=== PATIENT | female | born 1995 | race Caucasian/White ===

== ENCOUNTER 2021-11-15 16:05 | Outpatient (CLI) | payer OTHER, SELFPAY ==
[2021-11-15] VITALS (11 sets, daily range): BP systolic 138–156; BP diastolic 85–97; PULSE 77–108; TEMP 37.1; BMI 40.8
[2021-11-15 17:04] LABS: Hematocrit 27.2 % (37-47); Hemoglobin 8.9 g/dL (12.0-15.0); Mean Corp Hgb Conc 32.7 g/dL (32-36); Mean Corpuscular Hgb 30.2 pg (27.0-32.0); Mean Corpuscular Volume 92.2 fL (81-99); Mean Platelet Vol. 11.2 fl (6.2-12.0); Platelet Count 215 K/mm3 (150-450); RBC Distribution Width CV 14.8 % (11.6-14.6); RBC Distribution Width SD 49.1 fl (35.1-43.9); Red Blood Count 2.95 M/mm3 (4.2-5.4); White Blood Count 7.9 K/mm3 (4.4-11.0)
[2021-11-15 17:22] LABS: AST(SGOT) 15 U/L (15-37); Alanine Aminotransfer ALT/SGPT 10 U/L (13-56); Creatinine, Serum 1.08 mg/dL (0.55-1.02); EST Glomerular Filtration Rate 65 mL/min (>60); Est Glom Filt Rate - Afr Amer 78 mL/min (>60); Estimated Creatinine Clearance 64.73 ml/min; Uric Acid 7.2 mg/dL (2.6-6.0)
[2021-11-15 18:19] LABS: Protein, Urine (Random) 248.7 mg/dL (<11.9); Protein:Creat Ratio 777 mg/g CRE (0-200)
[2021-11-15 19:04] LABS: Group B Strep DNA By PCR Negative (Negative); Internal Control PASS; Probe Check PASS; Specimen Processing Control PASS
--- NOTE | 2021-11-16 11:14 | OB.TRI.NOTE ---
HPI - General General Date of Service: 11/15/21 Chief Complaint: r/o pre e HPI Narrative MARLI PEREZ, is a 26 F who presents at 36w5d from office for eval of elevated BP's. H/o obesity and elevated inhibin A. Was in the office for a routine OB visit and had 30+ protein in her urine, and elevated BP's. She was sent to L&D for eval. She denies CANSECO, vision changes, upper abd pain, nausea, malaise. She offers no complaints. PFSH PFSH Home Medications avsgijks-msx-Xl-FA 1 mg tablet tab PO 11/15/21 [History Last Taken Unknown] Allergy/AdvReac Type Severity Reaction Status Date / Time amoxicillin Allergy Other Verified 11/15/21 16:36 Environmental Allergies: Allergy Itching Verified 11/15/21 16:36 Uncoded [seasonal] cefadroxil [From [facility]] AdvReac Other Verified 11/15/21 16:36 Physical Exam Const alert and no apparent distress General Appearance: comfortable Extremity Extremity Narrative: Pitting edema bilaterally and no hyper reflexia per Dr. Parra evaluation in the office NST FHR Rate Baby A Baseline: 125 Variability:: Moderate Accelerations:: 15 x 15 Decelerations:: None NST Reactive:: Yes Assessment & Plan (1) 36 weeks gestation of : PLAN: - BP mild range on admission with highest being 156/92. Pt denies symptoms of pre e. Labs reviewed and p/c ratio is elevated, and Cr is 1.08. Creatinine about 1-2 weeks ago was 0.9, and baseline appears to be around 1. No evidence of pre eclampsia with severe features at this time. Discussed pre eclampsia with patient and associated risks. Discussed recommendation for delivery at 37 weeks with pre eclampsia without severe features. Scheduled for induction tomorrow night to start Cytotec as cervix is closed. Had growth US in the office and vertex on ultrasound. GBS collected. Patient desires an induction of labor tomorrow night and understands r/b/a of an induction tomorrow. (2) Elevated blood pressure affecting in third trimester, antepartum: (3) Pre-eclampsia:
== END 2021-11-16 18:59 | disposition home or self-care (01) ==
LOC: WPOUT 16:18 → WP 16:19
PROVIDERS: Obstetrics & Gynecology; Referring Provider Obstetrics & Gynecology; Visit Provider Obstetrics & Gynecology
DX: O14.93 Unspecified pre-eclampsia, third trimester (principal); R03.0 Elevated blood-pressure reading, without diagnosis of hypertension; Z3A.36 36 weeks gestation of pregnancy
CPT/HCPCS: 36415; 59050; 82565; 82570; 84156; 84450; 84460; 84550; 85027; 87081; 87653; 99218; G0378

== ENCOUNTER 2021-11-16 19:00 | Inpatient (IN) | payer OTHER, SELFPAY ==
[2021-11-16] MEDS: 0.9% Saline Lock 10 ML Syringe IV (20:20)
[2021-11-16 20:32] LABS: Absolute Lymphocyte Count 1.05 X10^3/uL (0.83-4.51); Absolute Neutrophil Count 6.1 X10^3/uL (2.0-7.7); Basophil# 0.02 X10^3/uL; Basophil% 0.3 % (0-1); Eosinophil# 0.05 X10^3/uL; Eosinophils% 0.6 % (0-5); Hematocrit 27.9 % (37-47); Hemoglobin 8.9 g/dL (12.0-15.0); Lymphocyte # 1.05 X10^3/ul (0.83-4.51); Lymphocyte % 13.2 % (19-41); Mean Corp Hgb Conc 31.9 g/dL (32-36); Mean Corpuscular Hgb 29.6 pg (27.0-32.0); Mean Corpuscular Volume 92.7 fL (81-99); Mean Platelet Vol. 11.6 fl (6.2-12.0); Monocyte# 0.66 X10^3/uL; Monocyte% 8.3 % (0-10); NRBC Flagged by Analyzer 0 % (0-5); Platelet Count 210 K/mm3 (150-450); RBC Distribution Width CV 14.9 % (11.6-14.6); RBC Distribution Width SD 49.1 fl (35.1-43.9); Red Blood Count 3.01 M/mm3 (4.2-5.4); White Blood Count 7.9 K/mm3 (4.4-11.0)
[2021-11-16 21:01] VITALS: BP 145/96; PULSE 78; PULSE 80; TEMP 36.8; O2SAT 99
[2021-11-16 21:10] VITALS: BMI 40.6
--- NOTE | 2021-11-16 21:22 | PCM.HP.OB ---
HPI - General General Date of Admission: 11/16/21 HPI Narrative MARLI PEREZ, is a 26 F who presents for induction of labor for preeclampsia, obesity, and elevated inhibin A. Maternal Data Information ERA Calculator Estimated Delivery Date Method Current WG Current Estimate 12/08/21 Manual 36w 6d PFSH PFSH Home Medications prfwomlw-ejk-Po-FA 1 mg tablet 1 tab PO DAILY pregnnacy 11/15/21 [History Last Taken 11/16/21 20:00] Allergy/AdvReac Type Severity Reaction Status Date / Time amoxicillin Allergy Other Verified 11/16/21 21:15 Environmental Allergies: Allergy Itching Verified 11/16/21 21:15 Uncoded [seasonal] cefadroxil [From ] AdvReac Other Verified 11/16/21 21:15 NST FHR Rate Baby A Baseline: 125 Variability:: Moderate Accelerations:: 15 x 15 Decelerations:: None NST Reactive:: Yes FHR Category:: Category I Uterine Activity:: None noted ROS Eyes Eyes: Denies blurry vision, change in vision or spots in vision ENT HEENT: Denies dizziness or headache(s) Cardiovascular Cardiovascular: Denies abdominal pain, chest pain or dyspnea Respiratory/Chest Respiratory/Chest: Denies cough, dyspnea, shortness of breath at rest or shortness of breath with exertion Gastrointestinal Gastrointestinal: Denies abdominal pain, diarrhea or vomiting Genitourinary Genitourinary: Denies change in urinary stream, difficulty urinating or dysuria Musculoskeletal Musculoskeletal: Reports none Integumentary Integumentary: Denies rash Neurologic Neurologic: Denies dizziness, headache(s), memory loss or weakness Psychiatric Psychiatric: Reports none Vital Signs Vital Signs Vital Signs: 11/16/21 21:01 11/16/21 21:01 11/16/21 21:01 Temperature Temperature Source Pulse Rate 78 80 Blood Pressure 145/96 H BP Systolic 145 BP Diastolic 96 Pulse Ox 11/16/21 21:01 11/16/21 21:01 11/16/21 21:01 Temperature 98.2 F Temperature Source Temporal Pulse Rate Blood Pressure BP Systolic BP Diastolic Pulse Ox 99 Weight Weight: 229 lb 9.6 oz Body Mass Index (BMI) 40.6 Physical Exam Const alert, oriented x3 and no apparent distress General Appearance: cooperative Orientation / Consciousness: awake Exam Limitations: no limitations HEENT normocephalic Head and Scalp: normal to inspection Eyes General Eye: normal appearance of both eyes Neck full ROM and no lymphadenopathy Lymph Lymphatic: no lymphadenopathy noted Chest inspection of chest normal Resp normal respiratory effort, normal air movement and clear to auscultation bilaterally Effort and Inspection: able to speak in complete sentences and symmetric chest movement Cardio regular rate and regular rhythm GI normal to inspection, nondistended, normoactive bowel sounds Back/Spine normal ROM Extremity full ROM and no calf tenderness Skin no rashes or lesions noted General Skin Exam: no breakdown Neuro oriented x3 and CN's II-XII intact bilaterally Psych mental status grossly normal and thought process normal Labs Labs Labs: Blood Type Pending Antibody Screen Pending Hct 27.9 % (37-47) L Hgb 8.9 g/dL (12.0-15.0) L Group B Strep DNA Negative (Negative) O+ Rubella- immune HB -neg HC - neg RPR- NR HIV- NR GBS- negative Assessment & Plan (1) Pre-eclampsia: (2) 36 weeks gestation of : (3) Obesity affecting , antepartum: (4) High serum inhibin A: PLAN: Plan Admit to labor and delivery Activate HTN protocol if warranted PIH labs Start IV and run fluids per policy GBS negative Cytotec 25 mcg PO every 4 hours x [address] Frances involved in admission and is collaborating physician
[2021-11-16 22:12] LABS: AST(SGOT) 13 U/L (15-37); Alanine Aminotransfer ALT/SGPT 8 U/L (13-56); Creatinine, Serum 1.05 mg/dL (0.55-1.02); EST Glomerular Filtration Rate 67 mL/min (>60); Est Glom Filt Rate - Afr Amer 81 mL/min (>60); Estimated Creatinine Clearance 66.57 ml/min; LDH 144 U/L (84-246); Uric Acid 7.1 mg/dL (2.6-6.0)
[2021-11-16 22:36] VITALS: BP 137/94; PULSE 88; TEMP 36.3
[2021-11-16] MEDS: miSOPROStol 25 MCG TABLET PO (22:40)
--- NOTE | 2021-11-16 22:43 | NURSING ---
patient does not have covid vaccine information
[2021-11-16 23:07] VITALS: BP 139/94; PULSE 77
[2021-11-16 23:48] VITALS: BP 137/76; PULSE 78; TEMP 36.4
[2021-11-16 23:55] LABS: Protein, Urine (Random) 383.6 mg/dL (<11.9); Protein:Creat Ratio 1066 mg/g CRE (0-200)
[2021-11-17] VITALS (55 sets, daily range): BP systolic 122–156; BP diastolic 65–93; PULSE 71–119; TEMP 36.5–37.2; O2SAT 88–100
[2021-11-17] MEDS: miSOPROStol 25 MCG TABLET PO ×2 (02:58→06:50)
--- NOTE | 2021-11-17 08:19 | PCM.PN.BLA ---
Progress Note Patient doing well. Denies any symptoms of preeclampsia. She offers no complaints this morning. Assessment & Plan Assessment/Plan (1) 37 weeks gestation of : PLAN: Cervix 1 thick and high, vertex. Will attempt intracervical Harris. We will start Pitocin once 4 hours out from Cytotec. Blood pressures remain mild range. Labs stable on admission. She has no symptoms of preeclampsia this morning. Discussed plan of care with patient and questions answered. (2) Pre-eclampsia: (3) Obesity affecting , antepartum: (4) High serum inhibin A:
--- NOTE | 2021-11-17 08:32 | PCM.PN.BLA ---
Progress Note At bedside for shafer placement and pt still doing well. Assessment & Plan Assessment/Plan (1) 37 weeks gestation of : PLAN: Cvx 1/t/h, vertex. Intracevical shafer placed in usual fashion and balloon filled with 40 cc. A small amount of red blood noted after exam and placement likely due to cervical irritation. Category 1 tracing. Pt feels well. (2) Pre-eclampsia: (3) Obesity affecting , antepartum: (4) High serum inhibin A:
[2021-11-17] MEDS: 0.9% Saline Lock 10 ML Syringe IV ×2 (08:33→21:51)
[2021-11-17] MEDS: 0.9% Normal Saline Single 100 ML IV.SOLN. INTRA-UTER (08:33)
[2021-11-17] MEDS: Lactated Ringers 1,000 ML 50 ML IV (08:33)
[2021-11-17] MEDS: Ondansetron 4 MG/2 ML Vial IV ×2 (08:56→21:50)
[2021-11-17] MEDS: Oxytocin 30 units/NS 500 ml 30 UNITS/500 ML IV.SOLN IV (10:53)
--- NOTE | 2021-11-17 17:09 | NURSING ---
Reports not catching urine well in hat for measuring
--- NOTE | 2021-11-17 17:47 | PCM.PN.BLA ---
Progress Note At bedside to check on pt. She is feeling ctx's but still comfortable. No bleeding. Assessment & Plan Assessment/Plan (1) 37 weeks gestation of : PLAN: Cvx 4/50/-3, posterior, ballotable. Unable to perform AROM at this time. Pit at 16 mu/min. Continue to titrate pitocin and will re assess later tonight for AROM. Category 1 tracing. BP normal-mild range. No pre e symptoms. (2) Pre-eclampsia: (3) Obesity affecting , antepartum:
[2021-11-17] MEDS: Mag Hydrox/Al Hydrox/Simeth 30 ML UDC PO (19:38)
[2021-11-17] MEDS: LACTATED RINGERS 500 ML 999 ML IV ×2 (21:26→23:27)
--- NOTE | 2021-11-17 21:26 | PCM.PN.BLA ---
Progress Note At bedside to check on pt. She is doing well. Uncomfortable with ctx's. No vb or lof. Assessment & Plan Assessment/Plan (1) 37 weeks gestation of : PLAN: Cvx /-2. Pit at 18 mu/min. head now well engaged in pelvis and no longer ballotable. AROM performed for moderate to large amount of clear fluid. IUPC placed. FHT 140/mod yazmin/+accels/+occasional variable decels. Pt desires epidural at this time. (2) Pre-eclampsia: (3) Obesity affecting , antepartum: (4) High serum inhibin A:
[2021-11-17] MEDS: fentaNYL-bupivacaine (epidural) 100 ML BAG EPIDURAL (22:15)
[2021-11-17] MEDS: Lactated Ringers 1,000 ML 200 ML IV (22:35)
[2021-11-18] VITALS (26 sets, daily range): BP systolic 131–158; BP diastolic 65–89; PULSE 81–107; RESP 16–18; TEMP 36.3–37; O2SAT 98–100
[2021-11-18] MEDS: Ondansetron 4 MG/2 ML Vial IV ×2 (01:35→06:01)
[2021-11-18] MEDS: 0.9% Saline Lock 10 ML Syringe IV ×3 (01:35→09:20)
[2021-11-18] MEDS: fentaNYL-bupivacaine (epidural) 100 ML BAG EPIDURAL (02:18)
[2021-11-18] MEDS: Lactated Ringers 1,000 ML 200 ML IV (06:15)
[2021-11-18] MEDS: Oxytocin 30 units/NS 500 ml 30 UNITS/500 ML IV.SOLN 334 UNITS IV (06:38)
--- NOTE | 2021-11-18 06:52 | PCM.PN.BLA ---
Progress Note Delayed entry. After 1.5 hours of pushing with good effort and good descent, bradycardia noted. I was immediately at bedside. FSE placed and cvx checked: 10/100/0 station. Pt placed in hands and knees. Pitocin turned off. FHT 160/mod yazmin/no accels/no decels. Pt pushed in hands and knees for a few ctx's without decels. Pitocin then restarted at half. Pt placed on back to assess pushing effort. Great pushing effort and pt moving baby to +2 station with each push. Pt set up for delivery. See operative report for details.
--- NOTE | 2021-11-18 06:57 | PCM.OPRPT ---
Problems Associated Problem List Diagnoses (1) 37 weeks gestation of : (2) Pre-eclampsia: (3) Obesity affecting , antepartum: (4) High serum inhibin A: Report of Operation Date of Procedure: 11/18/21 Pre-Operative Diagnosis: 37 week gestation, pre eclampsia without severe features, elevated inhibin A, obesity Post-Operative Diagnosis: As above Surgery/Procedure Performed:: Description of Surgical Findings:: VFI delivered in COCO position. Apgars 8, 9. Normal appearing placenta and 3 VC. 2nd degree perineal laceration. Surgeon: Mariel Dumont Type of Anesthesia: Epidural Special Medications: None Specimen's removed: Placenta Drains: Harris Estimated Blood Loss (mL): 100 Fluids Replaced: N/A Description of Procedure: The patient was complete and pushing. The head of the was delivered in right occiput anterior position, followed by the anterior shoulder spontaneously, followed by the posterior shoulder and body of the without any force or delay. A viable female was delivered atraumatically and placed on maternal abdomen. The cord was clamped and cut after 60 sec delay by the father of the baby. Cord blood and cord gases were obtained. The placenta was delivered with gentle traction and fundal massage. The placenta was noted to be normal-appearing and intact with a three-vessel cord. Uterus was explored x1. Fundus was firm and bleeding hemostatic with the Pitocin. Second-degree perineal laceration was repaired with 3-0 Vicryl in usual fashion. Instrument, sponge, sharp counts were correct. Grafts/Implants Used: None Complications None Admit VTE Documentation VTE Present on Admission: No
[2021-11-18] MEDS: Ibuprofen 600 MG Tablet PO ×2 (15:52→21:57)
[2021-11-18] MEDS: Acetaminophen 500 MG Tablet 1000 MG PO (17:59)
[2021-11-19] VITALS (11 sets, daily range): BP systolic 131–147; BP diastolic 82–85; PULSE 75–88; RESP 16–28; TEMP 36.1–37; O2SAT 98–100
--- NOTE | 2021-11-19 04:15 | DCINST_ITS ---
Discharge Instructions Diet Discharge Diet: No restrictions Activity Discharge Activity: May Shower May shower in (days): 0 May resume sexual activity in: 6 weeks Ice area for (Minutes): 15 Weight Bearing Status: Weight bearing as tolerated Lifting Restrictions: Nothing heavier than baby Additional Activity Instructions:: I am going to send in a prescription for a blood pressure cuff. Check your blood pressure once or twice daily and record it. If you ever have a blood pressure that is 160/110 or greater call. If you have a severe headache that will not go away with Tylenol, vision changes, upper abdominal pain, or you do not feel well please check your blood pressure then too and call Dressing / Incision Call your doctor if you observe: Fever of 101 or Higher, Coldness, Increased Pain, Numbness or Tingling, Change in Color, Inability to urinate, Inability to have a bowel movement, Using more than 1 pad per hour, Shortness of breath, Dizziness, Swelling in the ankles, Chest pain, Prolonged hiccupping, Increased palpitations (irregular heartbeat), Calf discomfort and Uncontrolled pain Cleanse incision/area with: Soap & Water Follow Up Care Please Follow Up With: Mariel Dumont, When: This upcoming week for a blood pressure check 6 week visit Test Results: Test results from this visit will be discussed in further detail at your follow- up appointment, if applicable. Discharge Plan Admission Admit Date/Time: 11/16/21 19:00 Primary Reason for Your Visit: delivery Attending Provider: Mariel Dumont Instructions Patient Instructions: After a Vaginal Discharge Orders/Prescriptions Prescriptions: New (DME) Blood Pressure Cuff Misc See Rx Instructions .Route Qty: 1 0RF Rx Instructions: As directed Continued aotyrest-vke-Nd-FA 1 mg Tablet 1 tab PO DAILY Disposition Disposition (needs filled in before D/C Order can be placed): Home, Self Care
--- NOTE | 2021-11-19 04:22 | PCM.PN.OB ---
Subjective Subjective Patient is doing well this morning. She denies any headaches or visual changes. She denies right upper quadrant pain. She is ambulating and voiding without difficulty. She is tolerating regular diet without nausea or vomiting. Lochia is normal. She is breast-feeding and using a nipple shield without complaints. She desires to go home today. Objective Data Objective Data Vital Signs: Vital Signs Temp Pulse Resp BP Pulse Ox O2 Del Method 97 F L 81 16 131/82 H 100 Room Air 11/19/21 00:56 11/19/21 04:18 11/19/21 00:56 11/19/21 04:18 11/19/21 00:56 11/19/21 00:56 Oxygen Delivery Method Room Air Weight: 229 lb 9.6 oz Body Mass Index (BMI) 40.6 Intake & Output: Intake and Output for Last 24 Hours 11/17/21 11/18/21 11/19/21 23:59 23:59 23:59 Intake Total 2294.74 / 2294.74 1718.33 / 1718.33 Output Total 200 / 200 1200 / 1200 Balance 2094.74 / 2094.74 518.33 / 518.33 Lab / Micro Data Result Diagrams: 11/16/21 20:20 11/16/21 20:20 Micro: Microbiology 11/16/21 20:20 Nasal Secretion SARS-CoV-2 Antigen (Rapid) - Final Physical Exam Const alert and no apparent distress General Appearance: comfortable HEENT normocephalic Resp normal respiratory effort GI soft to palpation and non-tender GI Narrative: FF Extremity no calf tenderness Extremity Narrative: 2+ pitting edema bilaterally No hyper reflexia No clonus Assessment & Plan (1) Pre-eclampsia: (2) Vaginal delivery: PLAN: Patient desires discharge today. She has no symptoms of anemia or pre eclampsia. BP mostly 130/80's. Meeting milestones for discharge. Discussed monitoring BP's this morning, and if they stay 130/80's OK for discharge. If trending up, may need anti hypertensive, labs and to stay overnight for monitoring. Sent BP cuff to her pharmacy. To monitor BP at home and discussed reasons to call or come in. Sent message to office staff for patient to come in early this week for a visit, and blood pressure check in office.
[2021-11-19] MEDS: Ibuprofen 600 MG Tablet PO (08:24)
[2021-11-19] MEDS: Benzocaine/Lanolin/Aloe Vera 1 SPRAY EACH TOPICAL (08:50)
== END 2021-11-19 16:10 | disposition home or self-care (01) | DRG 807 ==
PROVIDERS: Admitting Provider Advanced Practice Midwife; Visit Provider Obstetrics & Gynecology
DX: O14.94 Unspecified pre-eclampsia, complicating childbirth (principal); Z37.0 Single live birth; O70.1 Second degree perineal laceration during delivery; O99.214 Obesity complicating childbirth; O76 Abnormality in fetal heart rate and rhythm complicating labor and delivery; Z3A.37 37 weeks gestation of pregnancy
CPT/HCPCS: 59025; 59050; 82565; 82570; 83615; 84156; 84450; 84460; 84550; 85025; 86850; 86900; 86901; 87426; 99218; J7120; A4216; G0378; J2405

== ENCOUNTER 2024-05-18 07:13 | Inpatient (IN) | payer OTHER, SELFPAY ==
[2024-05-18] VITALS (55 sets, daily range): BP systolic 106–177; BP diastolic 56–88; PULSE 66–112; RESP 16–18; TEMP 36.4–36.9; O2SAT 98–100; BMI 41.0
[2024-05-18] MEDS: Lactated Ringers 1,000 ML 50 ML IV (07:42)
[2024-05-18 07:53] LABS: Absolute Lymphocyte Count 0.96 X10^3/uL (0.83-4.51); Absolute Neutrophil Count 6.7 X10^3/uL (2.0-7.7); Basophil# 0.03 X10^3/uL; Basophil% 0.4 % (0-1); Eosinophil# 0.08 X10^3/uL; Eosinophils% 0.9 % (0-5); Hematocrit 31.5 % (37-47); Hemoglobin 10.4 g/dL (12.0-15.0); Lymphocyte # 0.96 X10^3/ul (0.83-4.51); Lymphocyte % 11.3 % (19-41); Mean Corpuscular Hgb 30.9 pg (27.0-32.0); Mean Corpuscular Volume 93.5 fL (81-99); Mean Platelet Vol. 10.1 fl (6.2-12.0); Monocyte# 0.64 X10^3/uL; Monocyte% 7.5 % (0-10); NRBC Flagged by Analyzer 0 % (0-5); Neutrophil # 6.74 X10^3/uL (2.7-7.7); Neutrophil % 79.3 % (47-70); Platelet Count 210 K/mm3 (150-450); RBC Distribution Width CV 19.3 % (11.6-14.6); RBC Distribution Width SD 64.9 fl (35.1-43.9); Red Blood Count 3.37 M/mm3 (4.2-5.4); White Blood Count 8.5 K/mm3 (4.4-11.0)
--- NOTE | 2024-05-18 08:13 | HP.PCM.OB_ITS ---
HPI - General General Date of Admission: 05/18/24 HPI Narrative XAVIER PEREZ, is a 28 F who presents for induction of labor. at 39w3d. Denies any headache, visual changes, chest pain, shortness of breath, vaginal bleeding or leakage of fluid. Maternal Data Information ERA Calculator Estimated Delivery Date Method Current WG Current Estimate 05/22/24 Manual 39w 3d [facility] Medical History (Updated 05/18/24 @ 08:19 by Wendy Cartagena CNM) Pre-eclampsia Home Medications ?Medication ?Instructions ?Recorded ?Last Taken ?Type pguxhmul-vwo-Hm-FA 1 mg 1 tab PO DAILY pregnn acy 11/15/21 05/17/24 History tablet miscellaneous medical supply #1 ea 11/19/21 Unknown Rx (Blood Pressure Cuff) aspirin 81 mg tablet,delayed 81 mg PO DAILY 05/18/24 05/17/24 History release Allergy/AdvReac Type Severity Reaction Status Date / Time amoxicillin Allergy Other Verified 05/18/24 07:43 Environmental Allergies: Allergy Itching Verified 05/18/24 07:43 Uncoded (seasonal) cefadroxil (From [facility]) AdvReac Other Verified 05/18/24 07:43 Surgical History History of surgery Social History Smoking Status: Never smoker History Elective abortions Hx Para 1 Spontaneous abortions Hx # Term Pregnancies Ectopic pregnancies Hx # Pregnancies Multiple births # of living children NST FHR Rate Baby A Baseline: 135 Variability:: Moderate Accelerations:: 15 x 15 Decelerations:: None FHR Category:: Category I Uterine Activity:: None ROS Constitutional Constitutional: Reports systems reviewed and no addt'l complaints, except as documented; Denies headache(s) Eyes Eyes: Denies acute decrease in peripheral vision, blurry vision or change in vision ENT HEENT: Reports systems reviewed and no addt'l complaints, except as documented Cardiovascular Cardiovascular: Denies chest pain or dizziness Respiratory/Chest Respiratory/Chest: Denies cough, dyspnea, dyspnea on exertion, shortness of breath at rest or shortness of breath with exertion Gastrointestinal Gastrointestinal: Denies abdominal pain, diarrhea, nausea or vomiting Genitourinary Genitourinary: Denies abdominal discomfort Musculoskeletal Musculoskeletal: Denies limited range of motion Integumentary Integumentary: Reports systems reviewed and no addt'l complaints, except as documented Neurologic Neurologic: Reports systems reviewed and no addt'l complaints, except as documented Psychiatric Psychiatric: Reports systems reviewed and no addt'l complaints, except as documented Endocrine Endocrinology: Reports systems reviewed and no addt'l complaints, except as documented Hematologic/Lymphatic Hematologic/Lymphatic: Reports systems reviewed and no addt'l complaints, except as documented Allergic/Immunologic Allergic/Immunologic: Reports systems reviewed and no addt'l complaints, except as documented Vital Signs Vital Signs Vital Signs: 05/18/24 07:25 05/18/24 07:25 05/18/24 07:25 Temperature 98.2 F Temperature Source Temporal Pulse Rate Respiratory Rate 16 Blood Pressure BP Systolic BP Diastolic 05/18/24 07:27 05/18/24 07:27 05/18/24 07:58 Temperature Temperature Source Pulse Rate 99 Respiratory Rate Blood Pressure 134/77 H 125/82 H BP Systolic 134 125 BP Diastolic 77 82 05/18/24 07:58 05/18/24 07:58 05/18/24 07:58 Temperature Temperature Source Temporal Pulse Rate 91 Respiratory Rate 18 Blood Pressure BP Systolic BP Diastolic 05/18/24 07:58 Temperature 98.1 F Temperature Source Pulse Rate Respiratory Rate Blood Pressure BP Systolic BP Diastolic Weight Weight: 231 lb 7.766 oz Body Mass Index (BMI) 41.0 Physical Exam Const alert and oriented x3 General Appearance: cooperative Orientation / Consciousness: awake, oriented to person, oriented to place and oriented to time Exam Limitations: no limitations HEENT normocephalic Head and Scalp: normal to inspection, normocephalic and atraumatic Face and Sinus: normal facial exam Eyes General Eye: normal appearance of both eyes Neck full ROM Chest Chest: symmetrical chest wall rise Resp normal respiratory effort and normal air movement Auscultation: clear to auscultation bilaterally Cardio regular rate, regular rhythm, S1 normal heart sound, S2 normal heart sound, no murmurs, no rub, no gallops and no clicks GI normal to inspection, nondistended, normoactive bowel sounds and non-tender appearance of the vagina normal Bladder / Kidney Exam: no CVA tenderness Manual OB Exam: estimated gestational size appropriate, presentation cephalic, dilated 1, effaced 50, station -3 and other shafer inserted through cervical os, 30ml NS instilled. Tolerated well. Back/Spine normal ROM Extremity normal to inspection and full ROM Skin no rashes or lesions noted Neuro oriented x3, CN's II-XII intact bilaterally and moves all extremities Sensorium / Orientation: awake, alert and oriented to person Motor Exam: clonus absent Deep Tendon Reflexes: Rt Patellar (L4): 2+ and Lt Patellar (L4): 2+ Labs Labs Labs: Blood Type O POSITIVE Antibody Screen NEGATIVE Hct 31.5 % (37-47) L Hgb 10.4 g/dL (12.0-15.0) L Syphilis Total Ab Nonreactive (Nonreactive) Group B Strep DNA Negative (Negative) GBS negative RPR negative Rubella Immune HBsAG negative HepC negative HIV negative GC/CT negative 1hr GCT Assessment & Plan (1) Encounter for induction of labor: (2) 39 weeks gestation of : (3) History of pre-eclampsia: (4) Subclinical hyperthyroidism: (5) ASCUS with positive high risk HPV: (6) Obesity complicating : COMMENT: Pregravid BMI 37 (7) Anemia affecting : COMMENT: IV iron given during PLAN: Plan 1) Admit to labor and delivery 2) Routine labs 3) Continuous EFM 4) Pain management upon request 5) Shafer and pitocin for induction of labor. Reviewed risks, benefits and alternatives. 6) Dr. bryant physician and notified of patient status, above assessment, and plan.
[2024-05-18] MEDS: Oxytocin 15 Units/NS 250ml 15 UNITS/250 ML IV.SOLN 2 UNITS IV (08:14)
[2024-05-18] MEDS: 0.9% Normal Saline Single 100 ML IV.SOLN. INTRA-UTER (08:35)
[2024-05-18 08:50] LABS: Syphilis Antibodies Nonreactive (Nonreactive)
[2024-05-18] MEDS: fentaNYL-bupivacaine (epidural) 100 ML BAG EPIDURAL ×2 (11:25→15:38)
[2024-05-18] MEDS: Lactated Ringers 1,000 ML 999 ML IV (11:29)
[2024-05-18] MEDS: Lactated Ringers 1,000 ML 200 ML IV (15:38)
[2024-05-18] MEDS: Amnioinfusion- 0.9% NS 1,000 ML IV.SOLN. 1000 ML INTRA-UTER (17:37)
[2024-05-18] MEDS: Methylergonovine 0.2 MG/ML Ampul IM (18:43)
--- NOTE | 2024-05-18 18:54 | EX.PCM.OBVAG ---
Assessment & Plan (1) Vaginal delivery: (2) First degree perineal laceration: Maternal Data Information ERA Calculator Estimated Delivery Date Method Current WG Current Estimate 05/22/24 Manual 39w 3d Vaginal Delivery Vaginal Delivery Information Procedure Performed: Spontaneous Vaginal Delivery Date of Procedure: 05/18/24 Pre-Procedure Diagnosis: Elective Induction of Labor Post-Procedure Diagnosis: , first degree perineal laceration Type of anesthesia: Epidural Estimated Blood Loss: 600 ml Time of Delivery: 18:32 Findings Description of procedure: Progressed to complete with epidural for pain management. of viable female infant over first degree perineal laceration . APGARS 8,9 respectively. head delivered with body immediately forthcoming. Placed on maternal abdomen, strong cry. Mouth and nares suctioned for secretions. Pitocin started for active 3rd stage management. Cord doubly clamped and cut by FOB after pulsations ceased, delayed cord clamping. Placenta delivered intact via mcintyre, 3 vessel cord intact. Perineum inspected and revealed first degree perineal laceration. Repaired with 3.0 vicryl rapide and epidural Fundus firm and hemostasis achieved. EBL 600ml. Mom and baby stable, planning to breastfeed. Family bonding well. notified of delivery. Presentation: Vertex Amniotic Membrane Rupture Type: Artificial Amniotic Fluid Description: Clear Placental Delivery Description: Spontaneous Placenta Disposition: [facility] Specimen collected: No Cord Vessel Description: 3 Vessels Cord Entanglement: None Infant A Gender: Female (1 minute): 8 (5 minute): 9 Delayed Cord Clamping: Yes [employer] plate filler: No Post Vaginal Deli Medications given after delivery: IV Pitocin and IM Pitocin Episiotomy Description: None Laceration: Perineal Extension/lac and 1st degree Complication Complications: No
[2024-05-18] MEDS: Oxytocin 15 Units/NS 250ml 15 UNITS/250 ML IV.SOLN 83 UNITS IV (19:07)
[2024-05-18] MEDS: 0.9% Saline Lock 10 ML Syringe IV ×2 (19:48→22:17)
[2024-05-18] MEDS: Ondansetron 4 MG/2 ML Vial IV (19:48)
[2024-05-18] MEDS: Benzocaine/Lanolin/Aloe Vera 85 GM Spray 1 SPRAY TOPICAL (20:01)
[2024-05-18] MEDS: Ibuprofen 600 MG Tablet PO (20:33)
[2024-05-19] VITALS (9 sets, daily range): BP systolic 113–125; BP diastolic 57–79; PULSE 72–87; RESP 16; TEMP 36.1–36.9; O2SAT 97–98
[2024-05-19] MEDS: Ibuprofen 600 MG Tablet PO ×2 (05:01→11:34)
[2024-05-19 06:16] LABS: Absolute Lymphocyte Count 1.08 X10^3/uL (0.83-4.51); Absolute Neutrophil Count 10.9 X10^3/uL (2.0-7.7); Basophil# 0.02 X10^3/uL; Basophil% 0.2 % (0-1); Eosinophil# 0.07 X10^3/uL; Eosinophils% 0.5 % (0-5); Hematocrit 30.1 % (37-47); Hemoglobin 9.9 g/dL (12.0-15.0); Lymphocyte # 1.08 X10^3/ul (0.83-4.51); Lymphocyte % 8.4 % (19-41); Mean Corp Hgb Conc 32.9 g/dL (32-36); Mean Corpuscular Hgb 30.8 pg (27.0-32.0); Mean Corpuscular Volume 93.8 fL (81-99); Monocyte# 0.85 X10^3/uL; Monocyte% 6.6 % (0-10); NRBC Flagged by Analyzer 0 % (0-5); Neutrophil # 10.85 X10^3/uL (2.7-7.7); Neutrophil % 83.9 % (47-70); POSITIVE MORPHOLOGY YES; Platelet Count 162 K/mm3 (150-450); RBC Distribution Width CV 19.3 % (11.6-14.6); RBC Distribution Width SD 65.1 fl (35.1-43.9); Red Blood Count 3.21 M/mm3 (4.2-5.4); White Blood Count 12.9 K/mm3 (4.4-11.0)
[2024-05-19 06:23] LABS: Differential Indicated SCAN CRITERIA MET
[2024-05-19 07:20] LABS: Anisocytosis RARE
[2024-05-19] MEDS: Acetaminophen 500 MG Tablet 1000 MG PO ×2 (08:17→16:37)
--- NOTE | 2024-05-19 09:09 | PN.OBGYN_ITS ---
Subjective Subjective Doing well. Ambulating and voiding without difficulty. Mild lochia. Bottle feeding. Objective Data Objective Data Vital Signs: Vital Signs Temp Pulse Resp BP Pulse Ox O2 Del Method 97.0 F L 79 16 125/74 H 97 Room Air 05/19/24 08:20 05/19/24 08:20 05/19/24 08:20 05/19/24 08:20 05/19/24 08:20 05/19/24 08:20 Oxygen Delivery Method Room Air Weight: 105 kg Body Mass Index (BMI) 41.0 Intake & Output: Intake and Output for Last 24 Hours 05/18/24 05/18/24 05/19/24 00:59 23:59 23:59 Intake Total 3409.90 / 3409.90 Output Total 800 / 800 800 / 800 Balance 2609.90 / 2609.90 -800 / -800 Lab / Micro Data 05/19/24 06:08 Labs: Laboratory Results - last 24 hr 05/19/24 06:08: WBC 12.9 H, RBC 3.21 L, Hgb 9.9 L, Hct 30.1 L, MCV 93.8, MCH 30.8, MCHC 32.9, RDW Std Deviation 65.1 H, RDW Coeff of Rui 19.3 H, Plt Count 162, MPV 10.0, Immature Gran % (Auto) 0.400, Neut % (Auto) 83.9 H, Lymph % (Auto) 8.4 L, Rutherford % (Auto) 6.6, Eos % (Auto) 0.5, Baso % (Auto) 0.2, Absolute Neuts (auto) 10.9 H, Absolute Lymphs (auto) 1.08, Nucleated RBC % 0, Anisocytosis RARE ROS Constitutional Constitutional: Denies headache(s) Cardiovascular Cardiovascular: Denies chest pain or dyspnea Gastrointestinal Gastrointestinal: Denies nausea or vomiting Genitourinary Genitourinary: Denies dysuria Physical Exam Const alert, oriented x3 and no apparent distress General Appearance: cooperative and comfortable Eyes PERRL and EOMs intact bilaterally Resp normal respiratory effort GI soft to palpation and non-tender Uterus Palpation: uterus fundus firm ( below umbilicus) Extremity normal to inspection and full ROM Neuro oriented x3 and CN's II-XII intact bilaterally Psych mental status grossly normal Assessment & Plan (1) Vaginal delivery: PLAN: Plan possible discharge tonight
--- NOTE | 2024-05-19 18:52 | PCM.DC.SUM ---
Providers Date of Admission: 05/18/24 Date of Discharge: 05/19/24 Primary Care Physician: Dr. Jean Swift DO Reason For Visit: VAG Diagnosis Discharge Diagnosis (1) Vaginal delivery: Status: Acute Code(s): O80 - Encounter for full-term uncomplicated delivery Plan possible discharge tonight Medications at Discharge Home Medications [id number] 1 mg tablet 1 tab PO DAILY pregnnacy 11/15/21 miscellaneous medical supply (Blood Pressure Cuff) #1 ea 11/19/21 Hospital Course Operations None Procedures None Summary of Care Provided Minutes Spent on Discharge: 20 Hospital Course: IOL for obesity . Bottle feeding Physical Exam Const alert and no apparent distress Narrative: Fundus firm, below umbilicus. Weight / BMI Weight Weight: 105 kg Body Mass Index (BMI) 41.0 ABG / Lab / Microbiology Data 05/19/24 06:08 Laboratory: Laboratory Results - last 24 hr 05/19/24 06:08: WBC 12.9 H, RBC 3.21 L, Hgb 9.9 L, Hct 30.1 L, MCV 93.8, MCH 30.8, MCHC 32.9, RDW Std Deviation 65.1 H, RDW Coeff of Rui 19.3 H, Plt Count 162, MPV 10.0, Immature Gran % (Auto) 0.400, Neut % (Auto) 83.9 H, Lymph % (Auto) 8.4 L, [place] % (Auto) 6.6, Eos % (Auto) 0.5, Baso % (Auto) 0.2, Absolute Neuts (auto) 10.9 H, Absolute Lymphs (auto) 1.08, Nucleated RBC % 0, Anisocytosis RARE D/C Instructions May resume sexual activity in: 6 weeks DC O2, CPAP, BIPAP Needs Home O2 Discharge instructions: No Please Follow Up With: Noemi Cassidy MD When: Follow up with our office in 1-2 and 6 weeks or as needed. [phone] Meaningful Use Info Meaningful Use Meaningful Use Diagnoses (Choose all that apply): None applicable Ischemic Stroke Statin Dosing Therapy Reference: STATIN DOSE THERAPY REFERENCE: * Patients > 75 years receive moderate or high dose statin therapy. * Patients 75 years or YOUNGER should receive HIGH intensity statin dose unless contraindicated. You will be required to document reason for non-treatment if statin daily dose does not meet guidelines. HIGH DOSE STATIN THERAPY DAILY Atorvastatin > than or = to 40 mg Rosuvastatin > than or = to 20 mg Amlodipine + Atorvastatin > than or = to 2.5/40 mg Ezetimibe + Simvastatin 10/80 mg Simvastatin 80mg Discharge Plan Admission Admit Date/Time: 05/18/24 07:13 Primary Reason for Your Visit: delivery Attending Provider: Wendy Cartagena Primary Care Provider: Jean Swift Discharge Orders/Prescriptions Prescriptions: Continued [id number] 1 mg Tablet 1 tab PO DAILY (DME) Blood Pressure Cuff Misc See Rx Instructions .Route Qty: 1 0RF Rx Instructions: As directed Discontinued aspirin 81 mg tablet,delayed release (DR/EC) 81 mg PO DAILY Referrals / Follow Up: Jean Swift DO [Primary Care Provider] - Disposition Disposition (needs filled in before D/C Order can be placed): Home, Self Care
== END 2024-05-19 19:03 | disposition home or self-care (01) | DRG 807 ==
PROVIDERS: Admitting Provider Advanced Practice Midwife; PCP Student in an Organized Health Care Education/Training Program; Referring Provider Advanced Practice Midwife; Visit Provider Advanced Practice Midwife
DX: O99.284 Endocrine, nutritional and metabolic diseases complicating childbirth (principal); Z37.0 Single live birth; E05.90 Thyrotoxicosis, unspecified without thyrotoxic crisis or storm; O99.214 Obesity complicating childbirth; O70.0 First degree perineal laceration during delivery; Z3A.39 39 weeks gestation of pregnancy; Z87.59 Personal history of other complications of pregnancy, childbirth and the puerperium; O99.02 Anemia complicating childbirth
CPT/HCPCS: 59025; 59050; 85025; 86780; 86850; 86900; 86901; 99221; A4216; G0378; J2405